=== PATIENT | female | born 2000 | race Caucasian/White ===

== ENCOUNTER 2018-08-22 18:44 | Emergency (ER) | payer MEDICAID ==
[~2018-08-22] VITALS: Ht 167.6 cm; Wt 65.8 kg
[2018-08-22 20:05] LABS: Urine Bacteria FEW /hpf (None Seen); Urine Blood Negative /uL (Negative); Urine Mucus FEW (None Seen); Urine Specific Gravity 1.015 (1.001-1.035); Urine WBC 18 /hpf (0 - 5)
[2018-08-22] MEDS ORDERED: IBUPROFEN 800 MG TAB PO ONE (21:45)
[2018-08-22 22:44] VITALS: BP 134/76
== END 2018-08-22 23:00 | disposition home or self-care (01) ==
LOC: EDBD 18:44 → ER 18:52
DX: S16.1XXA Strain of muscle, fascia and tendon at neck level, initial encounter (principal); S46.912A Strain of unspecified muscle, fascia and tendon at shoulder and upper arm level, left arm, initial encounter; S66.912A Strain of unspecified muscle, fascia and tendon at wrist and hand level, left hand, initial encounter; V49.9XXA Car occupant (driver) (passenger) injured in unspecified traffic accident, initial encounter; Y93.89 Activity, other specified; Y92.488 Other paved roadways as the place of occurrence of the external cause; Y99.8 Other external cause status
CPT/HCPCS: 70450; 72125; 73030; 73130; 81001; 81025

== ENCOUNTER 2022-03-28 22:06 | Emergency (ER) | payer MEDICAID, OTHER ==
[~2022-03-28] VITALS: Ht 167.6 cm; Wt 77.1 kg
[2022-03-29 05:58] VITALS: BP 151/89
[2022-03-29] MEDS ORDERED: IBUP800T27 PO (06:57)
[2022-03-29] MEDS ORDERED: IBUPROFEN 800 MG TAB PO ONE (07:00)
== END 2022-03-29 07:13 | disposition home or self-care (01) ==
LOC: ER 22:06
DX: S93.402A Sprain of unspecified ligament of left ankle, initial encounter (principal); Z88.0 Allergy status to penicillin; Z88.6 Allergy status to analgesic agent; W19.XXXA Unspecified fall, initial encounter; Y93.89 Activity, other specified; Y92.89 Other specified places as the place of occurrence of the external cause; Y99.8 Other external cause status
CPT/HCPCS: 73610

== ENCOUNTER 2024-05-03 07:09 | Emergency (ER) | payer MEDICAID, OTHER ==
[~2024-05-03] VITALS: Ht 165.1 cm; Wt 83.1 kg
[~2024-05-03 07:09] MED LIST: IBUP-1456 PO
[2024-05-03 07:38] VITALS: BP 135/91; PULSE 100; RESP 16; TEMP 97.5; O2SAT 98
[2024-05-03] MEDS: LIDOCAINE 1% HCL (LOCAL ANESTH.) INJ 20ML MDV ONE (07:43)
[2024-05-03] MEDS: LIDOCAINE 1% HCL (LOCAL ANESTH.) INJ 20ML MDV IJ ONE (07:44)
== END 2024-05-03 07:59 | disposition home or self-care (01) ==
LOC: ER 07:11
DX: S01.81XA Laceration without foreign body of other part of head, initial encounter (principal); Z88.0 Allergy status to penicillin; Z88.8 Allergy status to other drugs, medicaments and biological substances; Z79.899 Other long term (current) drug therapy; W01.198A Fall on same level from slipping, tripping and stumbling with subsequent striking against other object, initial encounter; Y93.89 Activity, other specified; Y92.89 Other specified places as the place of occurrence of the external cause; Y99.8 Other external cause status
CPT/HCPCS: 12011; 99282; J2001